=== PATIENT | female | born 2000 ===

== ENCOUNTER 2021-08-21 00:23 | Emergency (ER) | payer BC ==
[~2021-08-21] VITALS: Ht 165.1 cm; Wt 47.7 kg
[2021-08-21 00:28] VITALS: TEMP 98.2
[2021-08-21 01:25] LABS: BASO % 0.6 % (0.0-2.0); EOS # 0.3 K/mm3 (0.0-0.7); EOS % 5.3 % (0.0-4.0); GRAN % 38.2 % (42.2-75.2); HEMOGLOBIN 11.1 g/dl (12.0-15.0); LYMPH # 2.3 K/mm3 (1.2-3.4); LYMPH % 45.7 % (20.0-51.0); MEAN CELL VOLUME 80 fl (80.0-95.0); MEAN CORPUSCULAR HEMOGLOBIN 24 pg (26-32); MEAN CORPUSCULAR HGB CONC 30 g/dl (33.0-37.0); MEAN PLATELET VOLUME 8.1 fl (7.4-10.4); MONO # 0.5 K/mm3 (0.1-0.6); PLATELET COUNT 398 K/mm3 (130-400); RED BLOOD COUNT 4.58 M/mm3 (4.10-5.30); REDCELL DISTRIBUTION WIDTH-CV 14.8 % (11.5-14.5)
[2021-08-21 01:30] LABS: ALBUMIN 3.8 gm/dL (3.5-5.0); BILIRUBIN,TOTAL 0.2 mg/dL (0.2-1.2); CALCIUM 9.8 mg/dL (8.4-10.2); CREATININE, serum 0.81 mg/dL (0.57-1.11); POTASSIUM 3.2 mmol/L (3.5-4.5); TOTAL PROTEIN 7.5 gm/dL (6.2-8.1)
[2021-08-21 01:33] LABS: HEMATOCRIT 36.5 % (35.0-45.0)
[2021-08-21 01:35] LABS: C-REACTIVE PROTEIN 0.93 mg/dL (0.00-0.50)
[2021-08-21] MEDS ORDERED: CLEOCIN HCL300 MG PO (02:22)
[2021-08-21] MEDS ORDERED: ZOFRAN ODT4 MG PO (02:25)
[2021-08-21 02:37] VITALS: BP 111/99; PULSE 89
== END 2021-08-21 02:37 | disposition home or self-care (01) ==
LOC: COL.ER 00:23
PROVIDERS: Nurse Practitioner Family
DX: L03.115 Cellulitis of right lower limb (principal); E86.0 Dehydration; E87.6 Hypokalemia; Z20.822 Contact with and (suspected) exposure to COVID-19
CPT/HCPCS: J2405; J7030